=== PATIENT | female | born 1965 | race Two or more races ===

== ENCOUNTER 2016-12-05 04:09 | Emergency (ER) | payer OTHER ==
--- NOTE | ~2016-12-05 | EKG ---
PATIENT: LATISHA HERRON UNIT #: [id number] Ventricular Rate: 118 BPM Atrial Rate: 118 BPM P-R Interval: 152 ms QRS Duration: 74 ms Q-T Interval: 326 ms QTC Calculation(Bezet): 456 ms P [place]: 78 degrees Calculated R [place]: 71 degrees Calculated T [place]: 66 degrees Diagnosis Line: Sinus tachycardia Diagnosis Line: Otherwise normal ECG Diagnosis Line: No previous ECGs available Diagnosis Line: Confirmed by VISHAL WALKER MD ([id number]) on 12/07/2016 Diagnosis Line: 4:01:49 PM INTERPRETING MD: AARON TRIPLETT
--- NOTE | ~2016-12-05 | CT16 ---
[facility] A Service of [facility] & [facility] RADIOLOGY TEXT RESULTS PATIENT: LATISHA HERRON LOCATION: [facility] : [birth year] UNIT #: [id number] AGE: [address]: Celso Gan SEX: F ORDER DR: [id number] [facility] [address] [place], [place] [address] [id number] E MR#: [id number] Acc #: [id number] NAME: LATISHA HERRON : 1965 SEX: F STUDY DATE/TIME: 12/05/2016 5:03 UNIT: [facility] ROOM: STUDY DESCRIPTION: CT Angio Chest for PE Attending Physician: Celso Gan P.A.-C. Ordering Physician: Celso Gan P.A.-C. Primary Care Physician: Boom Horn M.D. MEDICAL IMAGING REPORT This report is preliminary unless electronic signature is present EXAM CTA chest PE protocol with IV contrast 12/05/2016 HISTORY 51-year-old female with chest pain, asthma for 1 month. Shortness of breath, dyspnea and generalized weakness. COMPARISON AP portable chest 12/05/2016 at 03:25. CT chest without contrast 05/17/2014. PROCEDURE 2 mm axial images through the chest after IV contrast administration. 3-D coronal MIP reformatted images were obtained. This CT examination was performed with one or more of the following radiation dose reduction techniques: automatic exposure control, adjustment of mA and/or kV according to patient size, and iterative reconstruction. FINDINGS No pulmonary embolism, aortic aneurysm or aortic dissection. Mild motion degradation. Study is attenuated by body habitus. No pericardial effusion, pleural effusion or pathologic adenopathy. Shotty bilateral hilar lymph nodes thought to be benign and reactive. Mild bronchiolar wall thickening in bilateral lower lobes thought to represent small airways infectious - inflammatory change. Mild concentric thickening of the lower thoracic esophagus, nonspecific and may represent changes of esophagitis. Included portions of the upper abdominal organs normal. No acute osseous abnormalities. IMPRESSION 1. No pulmonary embolism, aortic aneurysm or aortic dissection. 2. Mild bronchiolar wall thickening in the bilateral lower lung zones may STS. [facility] A Service of [facility] & [facility] RADIOLOGY TEXT RESULTS PATIENT: LATISHA HERRON LOCATION: [facility] : 65 UNIT #: [id number] AGE: [address]: Celso Gan PAC SEX: F ORDER DR: represent changes of bronchitis in the appropriate clinical context. No lung consolidations are identified. 3. Mild concentric thickening of the lower thoracic esophagus is nonspecific and could represent changes of esophagitis in the appropriate clinical context. Dictated by... Celeste Cook M.D. THIS IS AN ELECTRONICALLY VERIFIED REPORT Celeste Cook M.D. at 12/10/2016 4:12 PM TOMASZ/salas TD: 12/05/2016 09:33 JOB #: [id number] MEDICAL IMAGING REPORT Page 1 of 1 COPY
--- NOTE | ~2016-12-05 | CR72 ---
[facility] A Service of [facility] & [facility] RADIOLOGY TEXT RESULTS PATIENT: LATISHA HERRON LOCATION: [facility] : 65 UNIT #: [id number] AGE: [address]: Celso Gan SEX: F ORDER DR: [id number] [facility] [address] [place], [place] [address] [id number] E MR#: [id number] Acc #: [id number] NAME: LATISHA HERRON : 1965 SEX: F STUDY DATE/TIME: 12/05/2016 3:25 UNIT: [facility] ROOM: STUDY DESCRIPTION: CR Chest Single View Portable Attending Physician: Celso Gan P.A.-C. Ordering Physician: Celso Gan P.A.-C. Primary Care Physician: Boom Horn M.D. MEDICAL IMAGING REPORT This report is preliminary unless electronic signature is present EXAM AP portable chest date 12/05/2016 HISTORY 51-year female with cough and shortness breath for 1 month, worsening. Asthma. COMPARISON AP portable chest 02/13/2016 FINDINGS A single AP portable view of the chest shows both lungs to be clear. The heart is normal in size. The mediastinal contour is normal. No significant bone abnormalities are seen. IMPRESSION Normal portable chest. Dictated by... Celeste Cook M.D. THIS IS AN ELECTRONICALLY VERIFIED REPORT Celeste Cook M.D. at 12/10/2016 4:11 PM Gisselle TD: 12/05/2016 08:44 JOB #: [id number] MEDICAL IMAGING REPORT Page 1 of 1 COPY
[2016-12-05 03:12] LABS: POC - CKMB 1.7 ng/mL (0.0-7.9); POC - TROPONIN <0.05 ng/mL (<=0.05)
[2016-12-05 03:35] LABS: BASOPHIL# 0.1 X10e3 (0-0.3); BASOPHIL% 0.7 % (0-2.5); DIFF IND YES; EOSINOPHIL# 0.1 X10e3 (0-0.7); EOSINOPHIL% 0.8 % (0.0-7.0); HEMATOCRIT 44.5 % (35.0-45.0); HEMOGLOBIN 14.6 gm/dL (12.0-16.0); LYMPHOCYTE# 3.8 X10e3 (1.0-3.5); LYMPHOCYTE% 22.4 % (17.0-45.0); MEAN CELL VOLUME 81.1 FL (83-96); MEAN CORPUSCULAR HEMOGLOBIN 26.7 PG (28-34); MEAN CORPUSCULAR HGB CONC 32.9 g/dL (30-36); MEAN PLATELET VOLUME 7.2 FL (6.5-11.5); MONOCYTE# 0.9 X10e3 (0-1.0); MONOCYTE% 5.3 % (3.0-12.0); NEUTROPHIL# 11.8 X10e3 (1.5-7.1); NEUTROPHIL% 70.8 % (40-75); PLATELET COUNT 363 X10e3 (140-420); RED BLOOD COUNT 5.48 X10e (3.90-5.30); RED CELL DISTRIBUTION WIDTH 14.1 % (11.0-15.5); WHITE BLOOD COUNT 16.7 X10e3 (4.0-10.5)
[2016-12-05 03:57] LABS: ALBUMIN SERUM 4.1 g/dL (3.5-5.0); BILIRUBIN,TOTAL 0.4 mg/dL (0.2-2.0); BUN/CREATININE RATIO 15.71; CALCIUM SERUM 9.4 mg/dL (8.4-10.2); CREATININE SERUM 0.7 mg/dL (0.6-1.4); GLOM FILT RATE Estimated 100.3 mL/min (>60); MAGNESIUM 1.8 mg/dL (1.6-3.0); POTASSIUM 3.4 mmol/L (3.5-5.1); PROTEIN TOTAL SERUM 7.5 g/dL (6.0-8.3)
[2016-12-05 03:59] LABS: PLATELET ESTIMATE NORMAL (NORMAL); RBC NORMAL YES
[2016-12-05 04:00] LABS: BILIRUBIN, DIRECT 0.1 mg/dL (0.0-0.2); BILIRUBIN,INDIRECT 0.3 mg/dL (0.0-0.9)
[~2016-12-05 04:09] MED LIST: ALBUTEROL17 GM INH; ALBUTEROL2.5 MG/0.5 IH; BAYER ASPIRIN325 M1 PO; BENZONATATE PO; CARDIA PO; CARDIZEM CD240 M1 PO; CARTIA XT240 M1 PO; GLIPIZIDE5 MG/BOTT1 PO; HUMALOG MIX 75/23 M1 SUBQ; HUMULIN 70100 UNITS/ SUBD; JANUVIA50 MG PO; LIPITOR20 MG PO; LIPITOR40 MG PO; LITHIUM CARBON300 M1 PO; METFORMIN HCL1000 M1 PO; METOPROLOL SUC100 MG PO; NAPROSYN500 MG PO; NICOTINE TRANSD21 MG EXT; OMEPRAZOLE20 M2 PO; PREDNISONE PO; PRINIVIL40 MG PO; SERTRALINE HCL50 M1 PO; SYMBICORT INH; TOPROL XL100 MG PO; VITAMIN D50000 UNIT PO; ZESTRIL40 MG PO; ZITHROMAX PO
[2016-12-05 05:00] LABS: POC - CKMB 1.4 ng/mL (0.0-7.9); POC - TROPONIN <0.05 ng/mL (<=0.05)
== END 2016-12-05 06:00 | disposition home or self-care (01) ==
LOC: CED 04:09
PROVIDERS: Physician Assistant
DX: J20.9 Acute bronchitis, unspecified (principal); E11.9 Type 2 diabetes mellitus without complications; I10 Essential (primary) hypertension; F31.9 Bipolar disorder, unspecified; K21.9 Gastro-esophageal reflux disease without esophagitis; J45.909 Unspecified asthma, uncomplicated; Z90.710 Acquired absence of both cervix and uterus; F17.210 Nicotine dependence, cigarettes, uncomplicated
CPT/HCPCS: 36415; 71010; 71275; 80048; 80076; 80178; 82553; 83605; 83735; 84484; 85025; 87040; 87651; 93005; 94640; 96361; 96374; 96375; 99284; J2270; J2405; Q9967

== ENCOUNTER 2017-04-08 12:26 | Observation (INO) | payer OTHER ==
[~2017-04-08] VITALS: Ht 157.5 cm; Wt 84.0 kg
--- NOTE | ~2017-04-08 | HP ---
Unit #: [id number] #: [id number] Patient: LATISHA HERRON [id number] [address] [address] [id number] I MR#: [id number] NAME: LATISHA HERRON ROOM: 82586 Age: 51 Sex: F Admission Date: 04/08/2017 : 1965 Attending Physician: Ascencion Balderas M.D. Primary Care Physician: Shannan Garcia M.D. HISTORY AND PHYSICAL CHIEF COMPLAINT Shortness of breath. HISTORY OF PRESENT ILLNESS The patient is a 51-year-old female with a past medical history of asthma, diabetes and hypertension. The patient presented to the emergency room complaining of shortness of breath. The patient has a recurrent admission in the past for asthma exacerbation. The patient continues to smoke a pack of cigarettes daily. The patient also complains of chest pain associated with shortness of breath. The shortness of breath started yesterday and has been gradually worsening. The patient has been using the nebulizer without any help and is being admitted for the above reasons. Denies any fever. Denies any chills. Denies any diaphoresis. Denies any nausea or vomiting. PAST MEDICAL HISTORY 1. History of hypertension. 2. Diabetes. 3. Asthma. PAST SURGICAL HISTORY 1. History of hysterectomy. 2. Salpingectomy. SOCIAL HISTORY The patient smokes a pack of cigarettes daily. Denies any alcohol or any illicit drug abuse. FAMILY HISTORY Positive for cancer in the parents and diabetes in the father. ALLERGIES No known drug allergies. HOME MEDICATIONS 1. Lipitor. 2. Breo. 3. Wellbutrin. 4. Diltiazem. 5. Flonase. 6. Glipizide. 7. Hydrochlorothiazide. 8. Lansoprazole. 9. Zestril. Unit #: [id number] #: [id number] Patient: LATISHA HERRON 10. [place]. 11. Glucophage. 12. Metoprolol. REVIEW OF SYSTEMS Positive for shortness of breath. Positive for chest pain. Negative for nausea and vomiting. Negative for diuresis. All other systems have been reviewed and none. PHYSICAL EXAMINATION GENERAL: The patient is lying on the bed, not in acute distress. VITALS: Temperature 98.5, pulse 104, respiratory rate 22, blood pressure 157/87, sating 95% on room air. HEENT: Head atraumatic, normocephalic. Pupils equal, round and reactive to light and accommodation. Extraocular movements are intact. NECK: Supple. LUNGS: Decreased air entry at the bases. Positive for expiratory wheezing. HEART: Regular rate and rhythm. Tachycardic. ABDOMEN: Soft. Positive bowel sounds. EXTREMITIES: No cyanosis, no clubbing. NEUROLOGIC: Alert, awake and oriented. No gross focal motor deficit. SKIN: Warm and dry. DIAGNOSTIC STUDIES IMAGING: Chest x-ray is negative for acute pathology. LABORATORY: WBC 10.7, hemoglobin 13.4, hematocrit 40.4, platelets 345. Strep screen is negative. Troponin less than 0.05. Sodium 138, potassium 3.3, chloride 101, bicarb 26, glucose 205, BUN 10, creatinine 0.6, calcium 9.1, AST 22, ALT 27, alkaline phosphatase 91, albumin 3.7, INR 0.9, troponin less than 0.05. ASSESSMENT 1. Asthma exacerbation. 2. Hypokalemia. PLAN Admit the patient to observation with telemetry. Continue with IV steroids 40 mg q.8 h. and duo-nebs q.4 h. p.r.n. Continue with low-dose sliding scale. Accu-Cheks a.c. and h.s. Repeat the labs again in the morning. Nicotine patch for the smoking cessation. Further recommendations will follow as more lab results are available. Dictated by Jessie Amezquita TD: 04/08/2017 16:37 JOB #: [id number] Unit #: [id number] #: [id number] Patient: LATISHA HERRON HISTORY AND PHYSICAL Page 1 of 1 X ASCENCION BALDERAS MD HISTORY AND PHYSICAL
--- NOTE | ~2017-04-08 | CR72 ---
[facility] A Service of [facility] & [facility] RADIOLOGY TEXT RESULTS PATIENT: LATISHA HERRON LOCATION: [facility] [id number] : [birth year] UNIT #: [id number] AGE: [address]: Olivia Oreilly MD SEX: F ORDER DR: [id number] [facility] [address] [place], [place] [address] [id number] I MR#: [id number] Acc #: [id number] NAME: LATISHA HERRON : 1965 SEX: F STUDY DATE/TIME: 04/08/2017 13:36 UNIT: [address] ROOM: [facility] STUDY DESCRIPTION: CR Chest Single View Portable Attending Physician: Jerod Balderas M.D. Ordering Physician: Jayson Jaeger M.D. Primary Care Physician: Shannan Garcia M.D. MEDICAL IMAGING REPORT This report is preliminary unless electronic signature is present EXAM Portable chest, 04/08. INDICATION Chest pain, shortness of air, and wheezing that started today. COMPARISON 12/05/2016 FINDINGS A single AP portable view of the chest shows both lungs to be clear. The heart is normal in size. The mediastinal contour is normal. No significant bone abnormalities are seen. IMPRESSION Normal portable chest. Dictated by... Wilton Hess Jr., M.D. THIS IS AN ELECTRONICALLY VERIFIED REPORT Wilton Hess Jr., M.D. at 04/09/2017 8:30 AM SPARKLE/tristin TD: 04/08/2017 23:42 JOB #: [id number] MEDICAL IMAGING REPORT Page 1 of 1 COPY
--- NOTE | ~2017-04-08 | DS ---
Unit #: [id number] #: [id number] Patient: LATISHA HERRON [id number] [address] [address] [id number] I MR#: [id number] NAME: LATISHA HERRON ROOM: 334 Age: 51 Sex: F Admission Date: 04/08/2017 : 1965 Discharge Date: 04/10/2017 Attending Physician: Olivia Oreilly M.D. Primary Care Physician: Shannan Garcia M.D. DISCHARGE SUMMARY DISCHARGE DIAGNOSES 1. Acute with exacerbation. 2. Diabetes mellitus type 2, uncontrolled, secondary to steroids. 3. Hypertension. 4. Smoking. 5. Obesity. CONSULTATION None. PROCEDURE None. DIAGNOSTIC STUDIES LABORATORY: Glucose 278, sodium 139, potassium 4.2, creatinine 0.8. WBC 26.5, hemoglobin 13.8, platelets 402,000. Strep (1) negative for group A. ALLERGIES None. DISCHARGE MEDICATIONS 1. Flonase one spray nasally daily. 2. Wellbutrin XL 150 p.o. daily. 3. Metformin 1000 p.o. b.i.d. 4. [place] 900 at bedtime. 5. Nicotine 21 mg transdermal daily. 6. Cardizem CD 240 mg p.o. in the morning. 7. Metoprolol 100 p.o. daily. 8. Breo one puff nasally daily. 9. Hydrochlorothiazide 25 daily. 10. Lipitor 40 daily. 11. Lisinopril 40 daily. 12. Glucotrol XL 10 mg p.o. b.i.d. before meals. 13. Prednisone tapering dose. 14. Albuterol mini nebs inhalation q.4 p.r.n. shortness of breath. HOSPITALIZATION COURSE A 51 year old admitted with shortness of breath. Acute asthma with exacerbation: Started on IV Solu-Medrol and DuoNeb. Currently, lungs are clear. The patient will be discharged on albuterol, Flonase, and prednisone tapering dose. She is on Breo at home. Continue with that. Unit #: [id number] #: [id number] Patient: LATISHA HERRON Diabetes mellitus type 2: Uncontrolled secondary to IV steroids. Insulin has been given but because I am going to taper her steroids, she can continue with her metformin and glipizide at home and follow with family physician. Hypokalemia: Replace with p.o. potassium. Hypertension: Controlled. Continue with her current Cardizem and Toprol XL. Smoking: Advised to quit. I wrote prescription for Nicotine. DISPOSITION Discharge home. FOLLOWUP Follow with family physician in one week time. Dictated by... Jessie Rey TD: 04/10/2017 16:15 JOB #: [id number] DISCHARGE SUMMARY Page 1 of 1 X Olivia Oreilly MD X DISCHARGE SUMMARY
--- NOTE | ~2017-04-08 | EKG ---
PATIENT: LATISHA HERRON UNIT #: [id number] Ventricular Rate: 99 BPM Atrial Rate: 99 BPM P-R Interval: 156 ms QRS Duration: 78 ms Q-T Interval: 360 ms QTC Calculation(Bezet): 462 ms P [place]: 77 degrees Calculated R [place]: 76 degrees Calculated T [place]: 72 degrees Diagnosis Line: Normal sinus rhythm Diagnosis Line: Nonspecific ST abnormality Diagnosis Line: Abnormal ECG Diagnosis Line: Diagnosis Line: Confirmed by RUIZ HARDY MD ([id number]) on Diagnosis Line: 04/10/2017 10:50:09 AM INTERPRETING MD: HAYLEY TRIPLETT
[2017-04-08 13:42] LABS: BASOPHIL# 0.1 X10e3 (0-0.3); BASOPHIL% 0.7 % (0-2.5); EOSINOPHIL# 0.1 X10e3 (0-0.7); EOSINOPHIL% 0.7 % (0.0-7.0); HEMATOCRIT 40.4 % (35.0-45.0); HEMOGLOBIN 13.4 gm/dL (12.0-16.0); LYMPHOCYTE# 2.1 X10e3 (1.0-3.5); LYMPHOCYTE% 20.1 % (17.0-45.0); MEAN CELL VOLUME 80.5 FL (83-96); MEAN CORPUSCULAR HEMOGLOBIN 26.7 PG (28-34); MEAN CORPUSCULAR HGB CONC 33.2 g/dL (30-36); MEAN PLATELET VOLUME 6.8 FL (6.5-11.5); MONOCYTE# 0.8 X10e3 (0-1.0); MONOCYTE% 7.6 % (3.0-12.0); NEUTROPHIL# 7.6 X10e3 (1.5-7.1); NEUTROPHIL% 70.9 % (40-75); PLATELET COUNT 345 X10e3 (140-420); RED BLOOD COUNT 5.02 X10e (3.90-5.30); RED CELL DISTRIBUTION WIDTH 14.5 % (11.0-15.5); WHITE BLOOD COUNT 10.7 X10e3 (4.0-10.5)
[2017-04-08 13:45] LABS: DIFF IND NO
[2017-04-08 14:02] LABS: POC - CKMB <1.0 ng/mL (0.0-7.9); POC - TROPONIN <0.05 ng/mL (<=0.05)
[2017-04-08 14:05] LABS: ALBUMIN SERUM 3.7 g/dL (3.5-5.0); BILIRUBIN, DIRECT 0.1 mg/dL (0.0-0.2); BILIRUBIN,INDIRECT 0.1 mg/dL (0.0-0.9); BILIRUBIN,TOTAL 0.2 mg/dL (0.2-2.0); BUN/CREATININE RATIO 16.66; CALCIUM SERUM 9.1 mg/dL (8.4-10.2); CREATININE SERUM 0.6 mg/dL (0.6-1.4); GLOM FILT RATE Estimated 105.5 mL/min (>60); POTASSIUM 3.3 mmol/L (3.5-5.1); PROTEIN TOTAL SERUM 6.9 g/dL (6.0-8.3)
[2017-04-08 14:09] LABS: INR 0.9; PARTIAL THROMBOPLASTIN TIME 24.4 SECONDS (23.5-31.3); PROTHROMBIN TIME (PATIENT) 10.1 SECONDS (10.0-11.7)
[2017-04-08 15:09] LABS: POC - CKMB <1.0 ng/mL (0.0-7.9); POC - TROPONIN <0.05 ng/mL (<=0.05)
[2017-04-08] MEDS ORDERED: LIPITOR40 MG PO (15:16)
[2017-04-08] MEDS ORDERED: PATIENT'S PHARMACY (15:16)
[2017-04-08] MEDS ORDERED: BREO ELLIPTA 21 EACH INH (15:17)
[2017-04-08] MEDS ORDERED: WELLBUTRIN XL150 M1 PO (15:17)
[2017-04-08] MEDS ORDERED: DILTIAZEM 24HR240 M2 PO (15:18)
[2017-04-08] MEDS ORDERED: LISINOPRIL PO (15:18)
[2017-04-08] MEDS ORDERED: LANSOPRAZOLE30 M3 PO (15:18)
[2017-04-08] MEDS ORDERED: FLONASE 0.05% N16 G1 (15:18)
[2017-04-08] MEDS ORDERED: GLIPIZIDE ER10 MG PO (15:18)
[2017-04-08] MEDS ORDERED: HYDROCHLOROTHIA25 MG PO (15:18)
[2017-04-08] MEDS ORDERED: METFORMIN PO (15:19)
[2017-04-08] MEDS ORDERED: METOPROLOL SUC100 MG PO (15:19)
[2017-04-08] MEDS ORDERED: LITHIUM CARBON300 M2 PO (15:19)
[2017-04-09 06:29] LABS: BASOPHIL# 0.1 X10e3 (0-0.3); BASOPHIL% 0.4 % (0-2.5); HEMATOCRIT 41.3 % (35.0-45.0); HEMOGLOBIN 13.6 gm/dL (12.0-16.0); LYMPHOCYTE# 0.9 X10e3 (1.0-3.5); LYMPHOCYTE% 7.9 % (17.0-45.0); MEAN CELL VOLUME 80.6 FL (83-96); MEAN CORPUSCULAR HEMOGLOBIN 26.6 PG (28-34); MEAN PLATELET VOLUME 6.7 FL (6.5-11.5); MONOCYTE# 0.2 X10e3 (0-1.0); MONOCYTE% 1.5 % (3.0-12.0); NEUTROPHIL# 10.7 X10e3 (1.5-7.1); NEUTROPHIL% 90.2 % (40-75); PLATELET COUNT 363 X10e3 (140-420); RED BLOOD COUNT 5.12 X10e (3.90-5.30); RED CELL DISTRIBUTION WIDTH 14.8 % (11.0-15.5); WHITE BLOOD COUNT 11.9 X10e3 (4.0-10.5)
[2017-04-09 06:46] LABS: DIFF IND NO
[2017-04-09 06:56] LABS: CALCIUM SERUM 9.8 mg/dL (8.4-10.2); CREATININE SERUM 0.5 mg/dL (0.6-1.4); GLOM FILT RATE Estimated 112.1 mL/min (>60); POTASSIUM 4.6 mmol/L (3.5-5.1)
[2017-04-10 05:54] LABS: HEMATOCRIT 42.8 % (35.0-45.0); HEMOGLOBIN 13.8 gm/dL (12.0-16.0); MEAN CELL VOLUME 81.5 FL (83-96); MEAN CORPUSCULAR HEMOGLOBIN 26.2 PG (28-34); MEAN CORPUSCULAR HGB CONC 32.2 g/dL (30-36); MEAN PLATELET VOLUME 7.2 FL (6.5-11.5); RED BLOOD COUNT 5.25 X10e (3.90-5.30); RED CELL DISTRIBUTION WIDTH 15.1 % (11.0-15.5); WHITE BLOOD COUNT 26.5 X10e3 (4.0-10.5)
[2017-04-10 07:02] LABS: BUN/CREATININE RATIO 18.75; CALCIUM SERUM 10.3 mg/dL (8.4-10.2); CREATININE SERUM 0.8 mg/dL (0.6-1.4); GLOM FILT RATE Estimated 85.4 mL/min (>60); POTASSIUM 4.2 mmol/L (3.5-5.1)
[2017-04-10] MEDS ORDERED: NICOTINE PATCH1 EACH TD (12:44)
[2017-04-10] MEDS ORDERED: PREDNISONE PO (12:46)
[2017-04-10] MEDS ORDERED: ALBUTEROL2.5 MG/3 M (12:46)
== END 2017-04-10 14:37 | disposition home or self-care (01) ==
LOC: CED 12:26 → CEDOF 16:00 → C3A PCU 16:35 → CEDOF 16:35 → C3A PCU 20:28 → CEDOF 20:28 → C3A PCU 04-09 06:47
PROVIDERS: Emergency Medicine; Internal Medicine
DX: J45.901 Unspecified asthma with (acute) exacerbation (principal); E11.65 Type 2 diabetes mellitus with hyperglycemia; T38.0X5A Adverse effect of glucocorticoids and synthetic analogues, initial encounter; I10 Essential (primary) hypertension; E66.9 Obesity, unspecified; E87.6 Hypokalemia; F17.210 Nicotine dependence, cigarettes, uncomplicated; Z90.710 Acquired absence of both cervix and uterus; Z79.899 Other long term (current) drug therapy
CPT/HCPCS: 36415; 71010; 80048; 80076; 82553; 82947; 84484; 85025; 85027; 85379; 85610; 85730; 87651; 93005; 94640; 94760; 96372; 96374; 96376; 99285; G0378; J1650; J1815; J2920; J2930